=== PATIENT | female | born 1990 | race African-American/Black ===

== ENCOUNTER 2020-12-23 10:44 | Observation (INO) ==
[2020-12-23 16:25] LABS: BASOPHILS % (AUTO) 0.6 % (0.2-1.0); EOSINOPHILS % (AUTO) 0.3 % (0.9-2.9); HEMATOCRIT 28.7 % (36.0-47.0); HEMOGLOBIN 8.9 g/dL (12.0-16.0); LYMPHOCYTES # (AUTO) 1.9 X10^3/uL (1.3-2.9); LYMPHOCYTES % (AUTO) 27.2 % (21.0-51.0); MEAN CORPUSCULAR HEMOGLOBIN 19.4 pg (27.0-34.0); MEAN CORPUSCULAR HGB CONC 30.9 g/dL (33.0-35.0); MEAN CORPUSCULAR VOLUME 62.8 fL (80.0-100.0); MEAN PLATELET VOLUME 7.5 fL (7.4-11.0); MONOCYTES # (AUTO) 0.4 x10^3/uL (0.3-0.8); NEUTROPHILS # (AUTO) 4.6 x10^3/uL (2.2-4.8); NEUTROPHILS % (AUTO) 65.9 % (42.0-75.0); PLATELET COUNT 416 X10^3/uL (150.0-450.0); RED BLOOD COUNT 4.57 X10^6/uL (3.5-5.4); RED CELL DISTRIBUTION WIDTH 19.4 % (11.6-16.5)
--- NOTE | 2020-12-23 16:30 | DR.UPDATE ---
H&P Update History and Physical Update: History and Physical reviewed and patient examined. Changes noted: NO Yes with the following:agree with H&P, will place tlc H&P Reviewed: Yes Patient was examined?: Yes Procedures (ALL) - Central Line Placement PCM.CLCO: written consent Time out performed: Yes Patient placed pm monitor/pulse ox: Yes MD prep: mask, gown, gloves, other Centrial line prep: chlorhexidine scrub, sterile drapes applied Local anesthsia used: lidocane 1% Ultrasound used for placement: Yes (right ij id'd and cannulation visualized) Central line lumen ininserted: triple Post procedure: sutured in place, good blood return, all ports aspirated, flushed,capped, sterile dressing applied Post procedure xray: tip oc catheter in good position, no pneumothorax seen Patient tolerated procedure: Yes Complications: none
--- NOTE | 2020-12-23 16:36 | RAD ---
HISTORYCentral line placementSTUDYCHEST, 1 VIEWCOMPARISONNoneFINDINGSRight IJ central venous catheter terminates over the SVC. There is cardiomegaly without significant pulmonary vasculature congestion. Lungs are clear of focal consolidation. No pleural effusion or pneumothorax.IMPRESSIONRight IJ central venous catheter projects over the SVC. No acute cardiopulmonary disease.Electronically signed by: Ra Stein (Dec 23, 2020 16:35:23)
[2020-12-23] MEDS: D5 1/2 NS 1000 ML 1,000 ML IV SCH ×2 (16:41→22:27)
[2020-12-23] MEDS: ZOFRAN INJ 4 MG VIAL IVP PRN ×2 (16:41→22:14)
[2020-12-23 16:51] LABS: ALANINE AMINOTRANSFERASE 292 Units/L (12-78); ALBUMIN 2.9 g/dL (3.4-5.0); ALKALINE PHOSPHATASE 204 Units/L (46-116); AMYLASE 55 Units/L (25-115); ASPARTATE AMINO TRANSFERASE 345 Units/L (15-37); BLOOD UREA NITROGEN 3 mg/dL (7-18); CALCIUM 8.9 mg/dL (8.5-10.1); CARBON DIOXIDE 24.2 mmol/L (21-32); CHLORIDE 107 mmol/L (98-107); COR CA(FOR HYPOALB) 9.8 mg/dL (8.5-10.1); CREATININE 0.52 mg/dL (0.55-1.02); SODIUM 142 mmol/L (136-145); TOTAL PROTEIN 7.4 g/dL (6.4-8.2); eGFR NON BLACK RACES > 60 (>60)
[2020-12-23 16:59] LABS: PLATELET MORPHOLOGY COMMENT NORMAL (NORMAL)
[2020-12-23 17:00] LABS: MICROCYTOSIS 2+
[2020-12-23] MEDS ORDERED: POTASSIUM CHL 60 MEQ/NS 0.45% 500 ML IV PRN (17:05)
[2020-12-23] MEDS ORDERED: POTASSIUM CHLORIDE LIQ 20 MEQ UDC PO PRN (17:05)
[2020-12-23] MEDS ORDERED: MICRO K EXTEN CAP 10 MEQ PO PRN (17:05)
[2020-12-23] MEDS ORDERED: KLOR-CON PO PRN (17:05)
[2020-12-23] MEDS ORDERED: POTASSIUM CHL 40 MEQ/NS 0.45% 500 ML IV PRN (17:05)
[2020-12-23] MEDS: MAGNESIUM SULFATE 1 GRAM/100 mL PREMIX 1 GM/100 ML BAG IV PRN ×2 (18:14→19:25)
[2020-12-23] MEDS: K-RIDER 10 MEQ/NS 100 ML 10 MEQ/100 ML BAG IV PRN ×4 (20:02→23:32)
[2020-12-23] MEDS: DILAUDID INJ IVP PRN (22:14)
[2020-12-24] MEDS: K-RIDER 10 MEQ/NS 100 ML 10 MEQ/100 ML BAG IV PRN ×5 (00:53→10:22)
[2020-12-24] MEDS: DILAUDID INJ IVP PRN ×2 (02:51→06:31)
[2020-12-24 04:54] LABS: ALBUMIN 2.6 g/dL (3.4-5.0); CHLORIDE 107 mmol/L (98-107); eGFR NON BLACK RACES > 60 (>60)
[2020-12-24 04:56] LABS: EOSINOPHILS % (AUTO) 0.4 % (0.9-2.9)
[2020-12-24 05:00] LABS: BASOPHILS # (AUTO) 0.1 X10^3/uL (0.0-0.1); BASOPHILS % (AUTO) 0.8 % (0.2-1.0); HEMATOCRIT 26.7 % (36.0-47.0); LYMPHOCYTES % (AUTO) 12.8 % (21.0-51.0); MEAN CORPUSCULAR HEMOGLOBIN 18.8 pg (27.0-34.0); MEAN CORPUSCULAR HGB CONC 29.8 g/dL (33.0-35.0); MEAN PLATELET VOLUME 7.5 fL (7.4-11.0); MONOCYTES # (AUTO) 0.7 x10^3/uL (0.3-0.8); MONOCYTES % (AUTO) 9.9 % (0.0-13.0); NEUTROPHILS # (AUTO) 5.7 x10^3/uL (2.2-4.8); NEUTROPHILS % (AUTO) 76.1 % (42.0-75.0); PLATELET COUNT 382 X10^3/uL (150.0-450.0); RED BLOOD COUNT 4.24 X10^6/uL (3.5-5.4); WHITE BLOOD COUNT 7.5 X10^3/uL (3.6-10.0)
[2020-12-24 05:08] LABS: ALANINE AMINOTRANSFERASE 266 Units/L (12-78); ALKALINE PHOSPHATASE 186 Units/L (46-116); ASPARTATE AMINO TRANSFERASE 275 Units/L (15-37); BLOOD UREA NITROGEN 4 mg/dL (7-18); CALCIUM 8.4 mg/dL (8.5-10.1); CARBON DIOXIDE 26.3 mmol/L (21-32); COR CA(FOR HYPOALB) 9.5 mg/dL (8.5-10.1); COR NA(FOR HYPERGLY) 143 mmol/L (136-145); CREATININE 0.62 mg/dL (0.55-1.02); SODIUM 142 mmol/L (136-145); TOTAL PROTEIN 6.7 g/dL (6.4-8.2)
[2020-12-24] MEDS: D5 1/2 NS 1000 ML 1,000 ML IV SCH ×3 (05:15→22:00)
[2020-12-24 05:40] LABS: MICROCYTOSIS 2+; PLATELET MORPHOLOGY COMMENT NORMAL (NORMAL)
[2020-12-24] MEDS: ZOFRAN INJ 4 MG VIAL IVP PRN (06:20)
[2020-12-24] MEDS: MORPHINE SULFATE INJ 4 MG IVP PRN ×2 (08:21→13:08)
--- NOTE | 2020-12-24 08:21 | DR.PROGNOT ---
Hospital Progress Notes - Progress Note for Day of: Progress Note Date: 12/24/20 - Chief Complaint Chief Complaint: c/o epigastric and upper abdominal pain . nausea . lab work showed elevated Bilirubin and liver enzymes .. these were normal post operatively . afebrile , - Past Medical Family Social History Past Med/Fam/Surg Hx: No changes since H&P Allergies: Allergies No Known Drug Allergies Allergy (Verified 12/20/20 06:59) - Review Of Systems ROS: No change since H&P - Vital Signs Vital Signs: Temperature 98.6 F Pulse Rate [Left Brachial] 92 Respiratory Rate 18 Blood Pressure [Left Arm] 117/62 O2 Sat by Pulse Oximetry 96 - Physical Exam Oriented: Normal Eyes: Normal Ear: Normal Nose: Normal Respiratory: Normal GI:Auscultation: Normal GI: Tenderness: Epigastric (soft, flat abdomen . with moderate tenderness .no rebound BS + ) Speech Pattern: Clear, Appropriate - Laboratory and Diagnostics Result Diagrams: 12/24/20 04:05 12/24/20 04:05 Labs: Laboratory WBC 7.5 X10^3/uL (3.6-10.0) 12/24/20 04:05 RBC 4.24 X10^6/uL (3.5-5.4) 12/24/20 04:05 Hgb 8.0 g/dL (12.0-16.0) L 12/24/20 04:05 Hct 26.7 % (36.0-47.0) L 12/24/20 04:05 MCV 63.0 fL (80.0-100.0) L 12/24/20 04:05 MCH 18.8 pg (27.0-34.0) L 12/24/20 04:05 MCHC 29.8 g/dL (33.0-35.0) L 12/24/20 04:05 RDW 19.0 % (11.6-16.5) H 12/24/20 04:05 Plt Count 382 X10^3/uL (150.0-450.0) 12/24/20 04:05 Plt Count Comment Adequate (ADEQUATE) 12/24/20 04:05 MPV 7.5 fL (7.4-11.0) 12/24/20 04:05 Neut % (Auto) 76.1 % (42.0-75.0) H 12/24/20 04:05 Lymph % (Auto) 12.8 % (21.0-51.0) L 12/24/20 04:05 [place] % (Auto) 9.9 % (0.0-13.0) 12/24/20 04:05 Eos % (Auto) 0.4 % (0.9-2.9) L 12/24/20 04:05 Baso % (Auto) 0.8 % (0.2-1.0) 12/24/20 04:05 Neut # (Auto) 5.7 x10^3/uL (2.2-4.8) H 12/24/20 04:05 Lymph # (Auto) 1.0 X10^3/uL (1.3-2.9) L 12/24/20 04:05 [place] # (Auto) 0.7 x10^3/uL (0.3-0.8) 12/24/20 04:05 Eos # (Auto) 0.0 x10^3/uL (0.0-0.2) 12/24/20 04:05 Baso # (Auto) 0.1 X10^3/uL (0.0-0.1) 12/24/20 04:05 Absolute Nucleated RBC 0.0 /100WBC 12/24/20 04:05 Plt Morphology Comment Normal (NORMAL) 12/24/20 04:05 RBC Morphology Abnormal (NORMAL) A 12/24/20 04:05 Microcytosis 2+ A 12/24/20 04:05 Sodium 142 mmol/L (136-145) 12/24/20 04:05 Corrected Sodium 143 mmol/L (136-145) 12/24/20 04:05 Potassium 3.1 mmol/L (3.5-5.1) L 12/24/20 04:05 Chloride 107 mmol/L (98-107) 12/24/20 04:05 Carbon Dioxide 26.3 mmol/L (21-32) 12/24/20 04:05 BUN 4 mg/dL (7-18) L 12/24/20 04:05 Creatinine 0.62 mg/dL (0.55-1.02) 12/24/20 04:05 Est GFR (MDRD) Af Amer > 60 (>60) 12/24/20 04:05 Est GFR (MDRD) Non-Af > 60 (>60) 12/24/20 04:05 Glucose 146 mg/dL (65-99) H 12/24/20 04:05 Calcium 8.4 mg/dL (8.5-10.1) L 12/24/20 04:05 Corrected Calcium 9.5 mg/dL (8.5-10.1) 12/24/20 04:05 Magnesium 2.1 mg/dL (1.7-2.9) 12/24/20 04:05 Total Bilirubin 3.10 mg/dL (0.2-1.0) H 12/24/20 04:05 AST 275 Units/L (15-37) H 12/24/20 04:05 ALT 266 Units/L (12-78) H 12/24/20 04:05 Alkaline Phosphatase 186 Units/L (46-116) H 12/24/20 04:05 Total Protein 6.7 g/dL (6.4-8.2) 12/24/20 04:05 Albumin 2.6 g/dL (3.4-5.0) L 12/24/20 04:05 Globulin 4.1 g/dL (2.5-4.5) 12/24/20 04:05 Albumin/Globulin Ratio 0.6 Ratio (1.1-2.1) L 12/24/20 04:05 Amylase 55 Units/L (25-115) 12/23/20 16:12 Lipase 121 Units/L (73-393) 12/23/20 16:12 SARS CoV-2 RNA Rapid VERONIKA Negative (NEGATIVE) 12/23/20 11:31 - Assessment and Plan 1: po lap radha . possible CBD stones . on IV ATB . IVF . Protonix. for MRCP today . may need ERCP and sphicterotomy
[2020-12-24] MEDS: PROTONIX INJ 40 MG VIAL IVP SCH (08:22)
[2020-12-24 09:46] VITALS: BMI 56.9
--- NOTE | 2020-12-24 10:01 | MRI ---
Exam:MRCPIndication: ABDOMINAL PAIN, NAUSEA, VOMITINGComparison: [None available]Technique:Multiplanar, multisequence imaging of the abdomen without IV contrast administration. MRCP imaging was performed per departmental protocol.Findings:[No drop in signal on out of phase imaging to suggest steatosis. No focal hepatic lesion limitations a noncontrast exam. No intrahepatic or extrahepatic bile duct dilatation. No filling defects within the common bile duct. Previous cholecystectomy is noted without localizing fluid collection within the gallbladder fossa.]The spleen, pancreas and adrenal glands are normal. Neither kidney demonstrates evidence of hydronephrosis solid mass. No free fluid within the abdomen. No enlarged abdominal lymph node.Impression:Previous cholecystectomy without localizing fluid collection within the gallbladder fossa. There is no intrahepatic or extrahepatic biliary ductal dilatation or filling defect within the common bile duct.Electronically signed by: CARMEN ALVAREZ (Dec 24, 2020 09:59:01)
[2020-12-24] MEDS: LEVAQUIN PREMIX IV 500 MG 500 MG/100 ML BAG IV SCH (11:20)
[2020-12-24] MEDS ORDERED: MYLICON TAB 80 MG CHEW PO SCH (13:00)
[2020-12-24] MEDS: MYLICON TAB 80 MG CHEW PO PRN ×2 (17:11→20:55)
[2020-12-25 06:32] LABS: BASOPHILS % (AUTO) 0.8 % (0.2-1.0); EOSINOPHILS # (AUTO) 0.2 x10^3/uL (0.0-0.2); EOSINOPHILS % (AUTO) 3.2 % (0.9-2.9); HEMATOCRIT 25.4 % (36.0-47.0); HEMOGLOBIN 7.8 g/dL (12.0-16.0); LYMPHOCYTES # (AUTO) 2.2 X10^3/uL (1.3-2.9); LYMPHOCYTES % (AUTO) 43.8 % (21.0-51.0); MEAN CORPUSCULAR HEMOGLOBIN 19.2 pg (27.0-34.0); MEAN CORPUSCULAR HGB CONC 30.6 g/dL (33.0-35.0); MEAN CORPUSCULAR VOLUME 62.8 fL (80.0-100.0); MEAN PLATELET VOLUME 7.4 fL (7.4-11.0); MONOCYTES # (AUTO) 0.3 x10^3/uL (0.3-0.8); MONOCYTES % (AUTO) 6.5 % (0.0-13.0); NEUTROPHILS # (AUTO) 2.3 x10^3/uL (2.2-4.8); NEUTROPHILS % (AUTO) 45.7 % (42.0-75.0); PLATELET COUNT 377 X10^3/uL (150.0-450.0); RED BLOOD COUNT 4.04 X10^6/uL (3.5-5.4); RED CELL DISTRIBUTION WIDTH 19.3 % (11.6-16.5)
[2020-12-25 06:53] LABS: ALANINE AMINOTRANSFERASE 219 Units/L (12-78); ALBUMIN 2.4 g/dL (3.4-5.0); ALKALINE PHOSPHATASE 175 Units/L (46-116); ASPARTATE AMINO TRANSFERASE 146 Units/L (15-37); BLOOD UREA NITROGEN 4 mg/dL (7-18); CALCIUM 8.4 mg/dL (8.5-10.1); CARBON DIOXIDE 25.3 mmol/L (21-32); CHLORIDE 108 mmol/L (98-107); COR CA(FOR HYPOALB) 9.7 mg/dL (8.5-10.1); CREATININE 0.59 mg/dL (0.55-1.02); SODIUM 141 mmol/L (136-145); TOTAL PROTEIN 6.5 g/dL (6.4-8.2); eGFR NON BLACK RACES > 60 (>60)
[2020-12-25 06:57] LABS: ANISOCYTOSIS SLIGHT; HYPOCHROMASIA 2+; MICROCYTOSIS 2+; PLATELET MORPHOLOGY COMMENT NORMAL (NORMAL)
[2020-12-25] MEDS: LEVAQUIN PREMIX IV 500 MG 500 MG/100 ML BAG IV SCH (08:16)
[2020-12-25] MEDS: PROTONIX INJ 40 MG VIAL IVP SCH (08:16)
[2020-12-25] MEDS: K-DUR TAB 20 MEQ PO PRN ×2 (08:29→12:03)
[2020-12-25] MEDS: D5 1/2 NS 1000 ML 1,000 ML IV SCH ×2 (10:18→19:25)
--- NOTE | 2020-12-25 12:35 | PCM.PROG ---
Progress Note Progress Note for Day of Date of Exam: 12/25/20 Subjective Subjective: Patient is feeling much better , tolerating diet and her bilirubin has returned to normal at 1.1. Will observe patient one more day. Past Medical Family Social History Past Med/Fam/Surg Hx: No changes since H&P Allergies: Allergies No Known Drug Allergies Allergy (Verified 12/20/20 06:59) Review of Systems ROS: No change since H&P Vital Signs and I&O's Vital Signs: Temperature 97.8 F Pulse Rate [Left Brachial] 70 Respiratory Rate 20 Blood Pressure [Left Arm] 104/75 O2 Sat by Pulse Oximetry 100 Intake and Output: Intake & Output 12/22/20 12/23/20 12/24/20 12/25/20 23:59 23:59 23:59 23:59 Intake Total 1120 / 1120 4160 / 4160 1110 / 1110 Balance 1120 / 1120 4160 / 4160 1110 / 1110 Physical Exam Oriented: Normal ( all incisions clean with archana in place ) Eyes: Normal Ear: Normal Nose: Normal Respiratory: Normal Auscultation: Bowel Sounds: Normal Tenderness: Epigastric (soft, flat abdomen . with moderate tenderness .no rebound BS + ) Speech Pattern: Clear and Appropriate Laboratory and Diagnostics Result Diagrams: 12/25/20 05:31 12/25/20 10:30 Labs: Laboratory WBC 5.0 X10^3/uL (3.6-10.0) 12/25/20 05:31 RBC 4.04 X10^6/uL (3.5-5.4) 12/25/20 05:31 Hgb 7.8 g/dL (12.0-16.0) L 12/25/20 05:31 Hct 25.4 % (36.0-47.0) L 12/25/20 05:31 MCV 62.8 fL (80.0-100.0) L 12/25/20 05:31 MCH 19.2 pg (27.0-34.0) L 12/25/20 05:31 MCHC 30.6 g/dL (33.0-35.0) L 12/25/20 05:31 RDW 19.3 % (11.6-16.5) H 12/25/20 05:31 Plt Count 377 X10^3/uL (150.0-450.0) 12/25/20 05:31 Plt Count Comment Adequate (ADEQUATE) 12/25/20 05:31 MPV 7.4 fL (7.4-11.0) 12/25/20 05:31 Neut % (Auto) 45.7 % (42.0-75.0) 12/25/20 05:31 Lymph % (Auto) 43.8 % (21.0-51.0) 12/25/20 05:31 [place] % (Auto) 6.5 % (0.0-13.0) 12/25/20 05:31 Eos % (Auto) 3.2 % (0.9-2.9) H 12/25/20 05:31 Baso % (Auto) 0.8 % (0.2-1.0) 12/25/20 05:31 Neut # (Auto) 2.3 x10^3/uL (2.2-4.8) 12/25/20 05:31 Lymph # (Auto) 2.2 X10^3/uL (1.3-2.9) 12/25/20 05:31 [place] # (Auto) 0.3 x10^3/uL (0.3-0.8) 12/25/20 05:31 Eos # (Auto) 0.2 x10^3/uL (0.0-0.2) 12/25/20 05:31 Baso # (Auto) 0.0 X10^3/uL (0.0-0.1) 12/25/20 05:31 Absolute Nucleated RBC 0.1 /100WBC 12/25/20 05:31 Plt Morphology Comment Normal (NORMAL) 12/25/20 05:31 RBC Morphology Abnormal (NORMAL) A 12/25/20 05:31 Hypochromasia 2+ A 12/25/20 05:31 Anisocytosis Slight A 12/25/20 05:31 Microcytosis 2+ A 12/25/20 05:31 Sodium 141 mmol/L (136-145) 12/25/20 05:31 Corrected Sodium TNP 12/25/20 05:31 Potassium 3.6 mmol/L (3.5-5.1) 12/25/20 10:30 Chloride 108 mmol/L (98-107) H 12/25/20 05:31 Carbon Dioxide 25.3 mmol/L (21-32) 12/25/20 05:31 BUN 4 mg/dL (7-18) L 12/25/20 05:31 Creatinine 0.59 mg/dL (0.55-1.02) 12/25/20 05:31 Est GFR (MDRD) Af Amer > 60 (>60) 12/25/20 05:31 Est GFR (MDRD) Non-Af > 60 (>60) 12/25/20 05:31 Glucose 89 mg/dL (65-99) 12/25/20 05:31 Calcium 8.4 mg/dL (8.5-10.1) L 12/25/20 05:31 Corrected Calcium 9.7 mg/dL (8.5-10.1) 12/25/20 05:31 Magnesium 2.1 mg/dL (1.7-2.9) 12/24/20 04:05 Total Bilirubin 1.10 mg/dL (0.2-1.0) H 12/25/20 05:31 AST 146 Units/L (15-37) H 12/25/20 05:31 ALT 219 Units/L (12-78) H 12/25/20 05:31 Alkaline Phosphatase 175 Units/L (46-116) H 12/25/20 05:31 Total Protein 6.5 g/dL (6.4-8.2) 12/25/20 05:31 Albumin 2.4 g/dL (3.4-5.0) L 12/25/20 05:31 Globulin 4.1 g/dL (2.5-4.5) 12/25/20 05:31 Albumin/Globulin Ratio 0.6 Ratio (1.1-2.1) L 12/25/20 05:31 Amylase 55 Units/L (25-115) 12/23/20 16:12 Lipase 121 Units/L (73-393) 12/23/20 16:12 SARS CoV-2 RNA Rapid VERONIKA Negative (NEGATIVE) 12/23/20 11:31
[2020-12-26] MEDS: D5 1/2 NS 1000 ML 1,000 ML IV SCH ×3 (03:50→10:44)
[2020-12-26 05:59] LABS: ALANINE AMINOTRANSFERASE 173 Units/L (12-78); ALBUMIN 2.3 g/dL (3.4-5.0); ALKALINE PHOSPHATASE 164 Units/L (46-116); ASPARTATE AMINO TRANSFERASE 92 Units/L (15-37); BLOOD UREA NITROGEN 4 mg/dL (7-18); CALCIUM 8.4 mg/dL (8.5-10.1); CARBON DIOXIDE 26.2 mmol/L (21-32); CHLORIDE 107 mmol/L (98-107); COR CA(FOR HYPOALB) 9.8 mg/dL (8.5-10.1); CREATININE 0.58 mg/dL (0.55-1.02); SODIUM 140 mmol/L (136-145); TOTAL PROTEIN 6.5 g/dL (6.4-8.2); eGFR NON BLACK RACES > 60 (>60)
[2020-12-26 06:00] LABS: BASOPHILS # (AUTO) 0.1 X10^3/uL (0.0-0.1); BASOPHILS % (AUTO) 1.6 % (0.2-1.0); EOSINOPHILS # (AUTO) 0.1 x10^3/uL (0.0-0.2); EOSINOPHILS % (AUTO) 2.1 % (0.9-2.9); HEMATOCRIT 25.8 % (36.0-47.0); HEMOGLOBIN 7.7 g/dL (12.0-16.0); LYMPHOCYTES # (AUTO) 2.2 X10^3/uL (1.3-2.9); LYMPHOCYTES % (AUTO) 42.9 % (21.0-51.0); MEAN CORPUSCULAR HEMOGLOBIN 18.7 pg (27.0-34.0); MEAN CORPUSCULAR HGB CONC 29.8 g/dL (33.0-35.0); MEAN CORPUSCULAR VOLUME 62.7 fL (80.0-100.0); MEAN PLATELET VOLUME 7.4 fL (7.4-11.0); MONOCYTES # (AUTO) 0.4 x10^3/uL (0.3-0.8); MONOCYTES % (AUTO) 7.2 % (0.0-13.0); NEUTROPHILS # (AUTO) 2.3 x10^3/uL (2.2-4.8); NEUTROPHILS % (AUTO) 46.2 % (42.0-75.0); PLATELET COUNT 406 X10^3/uL (150.0-450.0); RED BLOOD COUNT 4.12 X10^6/uL (3.5-5.4); RED CELL DISTRIBUTION WIDTH 19.4 % (11.6-16.5)
[2020-12-26] MEDS: K-DUR TAB 20 MEQ PO PRN (06:14)
[2020-12-26 06:28] LABS: PLATELET MORPHOLOGY COMMENT NORMAL (NORMAL)
[2020-12-26 06:30] LABS: ANISOCYTOSIS SLIGHT; HYPOCHROMASIA 2+; MICROCYTOSIS 2+; TARGET CELLS SLIGHT
[2020-12-26] MEDS: MAGNESIUM SULFATE 1 GRAM/100 mL PREMIX 1 GM/100 ML BAG IV PRN ×2 (06:51→08:35)
[2020-12-26] MEDS: LEVAQUIN PREMIX IV 500 MG 500 MG/100 ML BAG IV SCH (08:36)
[2020-12-26] MEDS: PROTONIX INJ 40 MG VIAL IVP SCH (08:38)
[2020-12-26 12:04] VITALS: BP 109/64
== END 2020-12-26 14:00 | disposition home or self-care (01) ==
LOC: MED/SURG
PROVIDERS: ADMIT Surgery; ATTEND Surgery
DX: Z90.49 Acquired absence of other specified parts of digestive tract; Z20.822 Contact with and (suspected) exposure to COVID-19; R10.13 Epigastric pain; R11.2 Nausea with vomiting, unspecified; E86.0 Dehydration; R82.2 Biliuria